=== PATIENT | female | born 1960 | race Caucasian/White ===

== ENCOUNTER → 2020-09-22 08:04 | Outpatient (CLI) | payer OTHER, SELFPAY ==
--- NOTE | 2020-09-22 08:07 | MM_ITS ---
PROCEDURE: MM DIG SCREENING MAMM BI W/CAD Digital Breast Tomosynthesis Included CLINICAL INDICATION: SCREENING There is no personal or family history of breast cancer. COMPARISON: No exams were available for comparison . TECHNIQUE: Standard CC and MLO images and 3D Tomosynthesis was obtained. R2 CAD reviewed. FINDINGS: Mild scattered fibroglandular densities are seen throughout both breast. There are small oval densities near the axillary tail of each breast probably representing low-lying nodes. There is a small nodular density upper-outer quadrant right breast and a similar small density upper-outer quadrant left breast which are noted to be small moles by the technologist. Huan images confirm the superficial location of both of these moles. There is a tiny benign-appearing density inner quadrant left breast. There is no suspicious lesion and no suspicious microcalcifications. IMPRESSION: Mild diffuse breast density with no suspicious lesions seen BI-RAD Category: 2 Benign Finding(s) FOLLOW-UP: 1YR 1 Year Follow-up (A letter has been sent to the patient regarding results of the study.) Dictated by: Dr. Augusto Oleary MD 09/29/2020 09:40 Dr. Augusto Oleary MD in [place] 09/29/2020 09:40
== END ==
PROVIDERS: PCP Internal Medicine Adolescent Medicine; Visit Provider Internal Medicine Adolescent Medicine
DX: Z12.31 Encounter for screening mammogram for malignant neoplasm of breast (principal)
CPT/HCPCS: 77063; 77067

== ENCOUNTER 2024-02-04 17:21 | Emergency (ER) | payer OTHER, SELFPAY ==
--- NOTE | 2024-02-04 18:36 | EXP.UTC ---
Discharge Plan Disposition Patient Disposition: Home, Self-Care Condition: Good Prescriptions Prescriptions: New acyclovir 800 mg tablet 800 mg PO 5XDAY 7 Days Qty: 35 0RF prednisone 10 mg tablet 10 mg PO DIRECTED 9 Days Qty: 21 0RF Rx Instructions: Take 4 tablets daily for 3 days, then take 2 tablets daily for 3 days, then take 1 tablet daily for 3 days, then stop. Referrals Follow up/Referrals: Jade Rodriguez [Primary Care Provider] - See instructions Activity Restrictions/Add. Instructions Additional Instructions/Restrictions: Drink plenty of fluids with the medications. Take tylenol or ibuprofen for pain or fever. Take the medications as directed. Follow up with your regular doctor. GO TO THE ER FOR ANY WORSENING SYMPTOMS Clinical Impressions Clinical Impression: Herpes zoster Stand Alone Forms Stand Alone Forms: Work/School Release Instructions Patient Instructions: Shingles, DI for Shingles, Prednisone, Acyclovir Print Language Print Language: [place] Discharge ED Provider: Sandor Cole [facility] General Stated complaint: rash on her back Time Seen by Provider: 02/04/24 18:36 History of Present Illness Provider Complaint: She states that for the past 3 days she has had a painful rash that starts on her right buttock and goes around the inside of her right thigh to just above her knee. Related Data Previous Rx's ?Medication ?Instructions ?Recorded acyclovir 800 mg tablet 800 mg PO 5XDAY 7 days #35 tabs 02/04/24 prednisone 10 mg tablet 10 mg PO DIRECTED 9 days #21 02/04/24 tabs [facility] Disclaimer: The information contained in this section may have been updated after the patient was seen, as this information can be updated by other users. Social History Smoking Status: Never smoker alcohol intake: never current occupational status: employed Travel in the last 8 weeks: None ROS Obtained: Yes All systems reviewed & no additional complaints except as documented Constitutional Constitutional: Denies chills and Denies fever(s) Eyes Eyes: Denies eye discharge ENT Ears, Nose, Mouth, and Throat: Denies dizziness, Denies otalgia and Denies sore throat Cardiovascular Cardiovascular: Denies chest pain Respiratory Respiratory: Denies shortness of breath, Denies chest congestion, Denies cough, Denies stridor and Denies wheezing Gastrointestinal Gastrointestingal: Denies nausea or vomiting Musculoskeletal Musculoskeletal: Reports system reviewed and no additional complaints, except as documented and Denies arthralgias Integumentary/Breasts Skin/Breast: Reports as per HPI and Reports rash Neurologic Neurologic: Denies dizziness and Denies paresthesias Allergic/Immunologic Allergic/Immunologic: Denies wheezing Physical Exam General General appearance: alert and in no apparent distress Head Head exam: atraumatic, normocephalic and normal inspection Eye Eye exam: Present normal appearance, PERRL and EOMI ENT ENT exam: Present normal exam, normal oropharynx, mucous membranes moist, TM's normal bilaterally and normal external ear exam Neck Neck exam: Present normal inspection, full ROM and trachea midline; Absent meningismus or lymphadenopathy Chest Chest inspection: Present normal inspection and symmetric chest wall rise; Absent tenderness Respiratory Respiratory exam: Present normal lung sounds bilaterally; Absent respiratory distress Cardiovascular Cardiovascular exam: Present regular rate and normal rhythm; Absent JVD Abdominal Exam Abdominal exam: Present soft and normal bowel sounds; Absent distention, tenderness or guarding Extremities Exam Extremities exam: Present normal inspection, full ROM and normal capillary refill; Absent calf tenderness Back Exam Back exam: Present normal inspection; Absent tenderness Neurological Exam Neurological exam: Present alert and oriented X3 Psychiatric Psychiatric exam: Present normal affect and normal mood
[2024-02-04 18:42] VITALS: BP 156/73; PULSE 109; RESP 18; TEMP 37.1; O2SAT 95; BMI 41.6
[2024-02-04 19:15] VITALS: BP 156/73; PULSE 109; RESP 18; TEMP 37.1; O2SAT 95
== END 2024-02-04 19:15 | disposition home or self-care (01) ==
PROVIDERS: Emergency Provider Nurse Practitioner Family; PCP Nurse Practitioner Family
DX: B02.9 Zoster without complications (principal)
CPT/HCPCS: 99204; 99212; G0463

== ENCOUNTER 2024-02-05 13:50 | Outpatient (POV) | payer OTHER, SELFPAY ==
[2024-02-05 14:26] VITALS: BP 157/75; PULSE 89; RESP 18; O2SAT 96; BMI 41.6
--- NOTE | 2024-02-05 16:00 | A.OFFVIS_ITS ---
HPI Data of Consult Patient: new to practice Consult date: 02/05/24 Requesting Physician: Jeannette Nolan APRN Primary Care Provider: Jade Rodriguez Consult Narrative Reason for consult: Acute shingles History of present illness: Ms. Tyler is a 63 year old female who presents today as a new patient. She is a referral from the ER. Patient rates her pain today patient states that it all started last Monday when she started to experience a burning tingling sensation and then by Monday she had a rash all around her buttocks along the right side. Patient states that it continued to get worse with blisters and then it spread to the right side of her groin and some on her right leg. Patient states the pain is constant and that she ended up coming in for the ER and was prescribed acyclovir and prednisone. Patient states the pain is constant and is affecting her ability perform activities of daily living such as cooking and cleaning. Patient states she can even sleep. Her Derek has been reviewed and is appropriate. 10 out of 10 CC: Jeannette Nolan APRN [facility] Disclaimer: The information contained in this section may have been updated after the patient was seen, as this information can be updated by other users. Medical History (Updated 02/05/24 @ 16:03 by Jeannette Nolan APRN) No significant past medical history Surgical History (Updated 02/05/24 @ 14:33 by Adela Castro RN) H/O tubal ligation Family History (Updated 02/05/24 @ 14:33 by Adela Castro RN) Other Unknown family medical history Social History (Updated 02/05/24 @ 14:34 by Adela Castro RN) Smoking Status: Never smoker alcohol intake: never current occupational status: employed Travel in the last 8 weeks: None Review of Systems Review of Systems Review of systems:: pertinent systems reviewed and negative unless documented below Review of systems (narrative): Review of Systems: General: No recent weight changes, no fever, no sleep disturbances Respiratory: No cough, no shortness of air, no recurring pulmonary infections Cardiovascular/peripheral vascular: No chest pain, no palpitations, no edema, no shortness of breath Gastrointestinal: No new onset incontinence, normal bowel movements reported Genitourinary: No new onset incontinence Musculoskeletal: Buttocks pain, right groin pain, right leg pain Psychiatric: [Normal mood/affect] Neurological: [Denies weakness in extremities], [denies balance issues] Meds Home Medications and Allergies Home Medications ?Medication ?Instructions ?Recorded ?Confirmed ?Type acyclovir 800 mg tablet 800 mg PO 5XDAY 7 days #35 tabs 02/04/24 02/05/24 Rx prednisone 10 mg tablet 10 mg PO DIRECTED 9 days #21 02/04/24 02/05/24 Rx tabs gabapentin 100 mg capsule 100 mg PO TID #42 caps 02/05/24 Rx ibuprofen 800 mg tablet (IBU) 800 mg PO TIDP PRN Moderate Pain 02/05/24 02/05/24 Rx #20 tabs New Prescriptions to Start Prescriptions: gabapentin Jeannette Nolan Allergies Allergy/AdvReac Type Severity Reaction Status Date / Time No Known Allergies Allergy Verified 02/05/24 15:30 Objective Vital signs: Pulse Resp BP Pulse Ox O2 Del Method 89 18 157/75 H 96 Room Air 02/05/24 14:26 02/05/24 14:26 02/05/24 14:26 02/05/24 14:02/05/24 14:26 Narrative: Physical Exam: General: Alert and oriented x3, no acute distress, pleasant and cooperative Lungs: Respirations even and unlabored, symmetrical chest expansion Eyes: PERRL Musculoskeletal: Flexion and extension of lumbar [spine] somewhat guarded secondary to pain, [antalgic gait noted] Neurological: Speech clear, no gross sensory deficit Skin: Diffuse vesicle rash along the right sacrum, right groin and right upper thigh Assessment and Plan *Assessment and plan (1) Herpes zoster: Status: Acute Category: Medical Code(s): B02.9 - Zoster without complications (2) Myofascial pain: Status: Acute Category: Medical Code(s): M79.18 - Myalgia, other site Plan Patient is experiencing significant pain related to an acute shingles outbreak with point tenderness in and around her right sacrum as well as right inguinal area and upper right thigh. Patient did have a diffuse rash with vesicles intact at multiple locations. I did discuss with patient that she may benefit from gabapentin 100 mg 3 times daily, compounded cream and trigger point injecti ons. Patient is agreeable to all of the above. Patient is already currently on acyclovir. Patient will be scheduled for trigger point injections of her right sacrum, right inguinal and right upper thigh. Patient has been instructed to contact the clinic with any concerns before the next appointment. Dr. Macias has reviewed this note and agrees with this plan of care. This note was dictated using voice recognition software and make contain errors or omissions. All injections are used with Lidocaine or Bupivacaine and Depo Medrol.
== END 2024-02-05 23:59 | disposition home or self-care (01) ==
PROVIDERS: PCP Nurse Practitioner Family; Visit Provider Nurse Practitioner Family
DX: B02.9 Zoster without complications (principal); M79.18 Myalgia, other site; Z73.89 Other problems related to life management difficulty
CPT/HCPCS: 99202; G0463